=== PATIENT | female | born 1950 | race American Indian/Alaskan Native ===

== ENCOUNTER 2016-11-24 22:24 | Emergency (ER) | payer BC ==
[2016-11-24 23:02] LABS: Basophils % (Auto) 0.3 % (0.0-1.8); Eosinophils % (Auto) 2.2 % (0.0-4.3); Hematocrit 39.1 % (30.3-42.9); Hemoglobin 13.3 gm/dl (10.1-14.3); Mean Corpuscular HGB Conc 34 % (30-34); Mean Corpuscular Hemoglobin 33 pg (28-32); Mean Corpuscular Volume 96 fl (79-97); Platelet Count 252 K/mm3 (140-440); Red Blood Count 4.07 M/mm3 (3.65-5.03); Red Cell Distribution Width 12.7 % (13.2-15.2); White Blood Count 10.1 K/mm3 (4.5-11.0)
[2016-11-24 23:20] LABS: Alanine Aminotransferase 16 units/L (7-56); Albumin 3.8 g/dL (3.9-5); Albumin/Globulin Ratio 1.1 %; Alkaline Phosphatase 61 units/L (35-129); Anion Gap 18 mmol/L; BUN/Creatinine Ratio 18.57; Blood Urea Nitrogen 13 mg/dL (7-17); Calcium 8.8 mg/dL (8.4-10.2); Carbon Dioxide 26 mmol/L (22-30); Chloride 95.7 mmol/L (98-107); Glucose 139 mg/dL (65-100); Lipase 36 units/L (13-60); Potassium 3.6 mmol/L (3.6-5.0); Sodium 136 mmol/L (137-145); Total Protein 7.4 g/dL (6.3-8.2)
[2016-11-25 01:44] LABS: Bilirubin,Urine NEG (Negative); Blood,Urine SM (Negative); Ketones,Urine NEG (Negative); Leukocyte Esterase,Urine SM (Negative); Nitrite,Urine NEG (Negative); Protein,Urine <15 mg/dL mg/dL (Negative); Urobilinogen,Urine < 2.0 mg/dL (<2.0)
[2016-11-25] MEDS ORDERED: ROBAXIN 1,000 MG in NACL 0.9% 250ML 250 ML IV ONE (03:00)
[2016-11-25] MEDS ORDERED: MORPHINE IV ONE (03:00)
[2016-11-25] MEDS ORDERED: ZOFRAN IV ONE (03:00)
--- NOTE | 2016-11-25 03:08 | Emergency Department Report ---
ED Abdominal Pain HPI - General Chief Complaint: Abdominal Pain Stated Complaint: LEFT SIDE PAIN Time Seen by Provider: 11/25/16 02:50 Source: patient Mode of arrival: Ambulatory Limitations: No Limitations - History of Present Illness Initial Comments: 66-year-old female presents to the emergency department complaining of left- sided abdominal pain and back pain. Sensation states she has had intermittent symptoms for one week. Her symptoms have become constant since yesterday. She describes sharp pain in her left flank and left lower back. This pain does not radiate. She reports yesterday morning she had some nausea and diarrhea. She denies vomiting. These associated symptoms have since resolved. Patient is also stating that she is having difficulty moving her left leg. There are no other complaints. MD Complaint: flank pain -: Gradual, week(s) (1) Location: L flank Radiation: back Migration to: no migration Severity scale (0 -10): 10 Quality: sharp Consistency: constant Improves With: nothing Worsens With: nothing Associated Symptoms: nausea, diarrhea - Related Data Home Medications Medication Instructions Recorded Confirmed Last Taken Hydrochlorothiazide [HCTZ] 25 mg PO DAILY 01/29/16 11/25/16 01/28/16 12:00 25 mg Metoprolol [Lopressor TAB] 100 mg PO BID 01/29/16 11/25/16 01/29/16 08:24 100 mg Previous Rx's Medication Instructions Recorded Last Taken Type Meclizine [Antivert] 25 mg PO TID PRN #14 tablet 01/29/16 Unknown Rx traMADol [Ultram 50 MG tab] 50 mg PO Q6HR PRN #7 tablet 01/29/16 Unknown Rx Methocarbamol [Robaxin TAB] 750 mg PO Q8H PRN #20 tablet 11/25/16 Unknown Rx Allergies Allergy/AdvReac Type Severity Reaction Status Date / Time ibuprofen Allergy Rash Verified 11/25/16 02:26 latex Allergy Rash Verified 11/25/16 02:26 ED Review of Systems ROS: Stated complaint: LEFT SIDE PAIN Other details as noted in HPI Comment: All other systems reviewed and negative Gastrointestinal: abdominal pain, nausea, diarrhea Musculoskeletal: back pain ED Past Medical Hx - Past Medical History Previous Medical History?: Yes Hx Hypertension: Yes Hx Arthritis: Yes - Surgical History Past Surgical History?: No - Family History Family history: no significant - Social History Smoking Status: Never Smoker Substance Use Type: None - Medications Home Medications: Home Medications Medication Instructions Recorded Confirmed Last Taken Type Hydrochlorothiazide [HCTZ] 25 mg PO DAILY 01/29/16 11/25/16 01/28/16 12:00 History 25 mg Meclizine [Antivert] 25 mg PO TID PRN #14 tablet 01/29/16 11/25/16 Unknown Rx Metoprolol [Lopressor TAB] 100 mg PO BID 01/29/16 11/25/16 01/29/16 08:24 History 100 mg traMADol [Ultram 50 MG tab] 50 mg PO Q6HR PRN #7 tablet 01/29/16 11/25/16 Unknown Rx Methocarbamol [Robaxin TAB] 750 mg PO Q8H PRN #20 tablet 11/25/16 Unknown Rx ED Physical Exam - General Limitations: No Limitations General appearance: alert, in no apparent distress - Head Head exam: Present: atraumatic, normocephalic - Eye Eye exam: Present: normal appearance, PERRL, EOMI - ENT ENT exam: Present: normal exam, normal orophraynx, mucous membranes moist - Neck Neck exam: Present: normal inspection, full ROM. Absent: tenderness - Respiratory Respiratory exam: Present: normal lung sounds bilaterally. Absent: respiratory distress - Cardiovascular Cardiovascular Exam: Present: regular rate, normal rhythm, normal heart sounds - GI/Abdominal GI/Abdominal exam: Present: soft, tenderness (mild tenderness to palpation left mid abdomen), normal bowel sounds. Absent: distended, guarding, rebound - Extremities Exam Extremities exam: Present: normal inspection, full ROM. Absent: tenderness - Back Exam Back exam: Present: normal inspection, full ROM, tenderness, muscle spasm (left lumbar), paraspinal tenderness (left lumbar). Absent: CVA tenderness (R), CVA tenderness (L), vertebral tenderness - Neurological Exam Neurological exam: Present: alert, oriented X3. Absent: motor sensory deficit - Skin Skin exam: Present: warm, dry, intact ED Course Vital Signs 11/24/16 11/25/16 22:31 02:35 Temperature 98.5 F Pulse Rate 73 65 Respiratory 18 16 Rate Blood Pressure 137/81 153/87 [Right] O2 Sat by Pulse 99 98 Oximetry ED Medical Decision Making - Lab Data Result diagrams: 11/24/16 22:38 05/26/17 22:38 - Radiology Data Radiology results: report reviewed, image reviewed CT of the abdomen and pelvis reveals mildly thickened gastric wall. Diverticulosis is also noted. There is no acute intra-abdominal abnormality. - Medical Decision Making Lab and imaging results reviewed and discussed with the patient. Patient reports her symptoms have resolved following IV medication. Patient will be discharged home at this time to follow up with her primary care physician. - Differential Diagnosis muscle spasm, UTI, renal stone Critical care attestation.: If time is entered above; I have spent that time in minutes in the direct care of this critically ill patient, excluding procedure time. ED Disposition Clinical Impression: Muscle spasm of back Disposition: DISCHARGED TO HOME OR SELFCARE Is pt being admited?: No Condition: Stable Instructions: Muscle Spasm (ED) Prescriptions: Methocarbamol [Robaxin TAB] 750 mg PO Q8H PRN #20 tablet PRN Reason: Muscle Spasm Referrals: PRIMARY CARE, [Primary Care Provider] - 3-5 Days Time of Disposition: 06:00
[2016-11-25] MEDS ORDERED: NACL ONE (03:42)
--- NOTE | 2016-11-25 05:26 | Cat Scan Report ---
FINAL REPORT EXAM: CT ABDOMEN PELVIS W CON HISTORY: left sided abd pain with diarrhea TECHNIQUE: CT abdomen and pelvis performed. Images extend from diaphragm to pubic symphysis. 100 cc Omnipaque 350 IV was administered. No oral contrast was administered. Coronal and sagittal reformatted images were obtained. PRIORS: None. FINDINGS: There is some dependent atelectasis at the lung bases. There is fatty infiltration of the liver. The visualized liver, spleen, pancreas, adrenal glands and kidneys demonstrate no significant abnormalities. There is no abdominal aortic aneurysm. There are aortoiliac atherosclerotic calcifications. There is some wall thickening involving the gastric body. This may reflect lack of distension although could be gastritis. There is no evidence of intestinal obstruction. There is a minimal umbilical hernia which contains only fat. The appendix is normal. There is no free intraperitoneal air. The bladder is unremarkable. There is diverticulosis involving the sigmoid colon, but there is no evidence of acute diverticulitis. IMPRESSION: Wall thickening in the gastric body may reflect gastritis. Diverticulosis. No acute diverticulitis seen. Very small fat containing umbilical hernia.
[2016-11-25 06:07] VITALS: BP 154/80
== END 2016-11-25 06:05 | disposition home or self-care (01) ==
LOC: ED 22:24
DX: M62.830 Muscle spasm of back (principal); I10 Essential (primary) hypertension; M19.90 Unspecified osteoarthritis, unspecified site
CPT/HCPCS: 36415; 74177; 80053; 81001; 83690; 85025; 96365; 96375; 99284; J2270; J2405; J2800; J7050; Q9967